=== PATIENT | male | born 1955 | race Asian ===

== ENCOUNTER 2024-12-16 08:19 | Outpatient (REF) | payer MEDICARE, SELFPAY ==
[2024-12-16 10:23] LABS: Alanine Aminotransferase 29 U/L (0-40); Albumin Level 4.6 g/dL (3.5-5.0); Alkaline Phosphatase 51 U/L (39-117); Aspartate Amino Transferase 25 U/L (5-37); Total Protein 7.2 g/dL (6.5-8.0)
== END 2024-12-16 08:20 | disposition home or self-care (01) ==
LOC: HO.LAB 08:19
PROVIDERS: PCP Internal Medicine; Visit Provider Psychiatry & Neurology Neurology
DX: G40.909 Epilepsy, unspecified, not intractable, without status epilepticus (principal); R42 Dizziness and giddiness; R11.10 Vomiting, unspecified; Z79.899 Other long term (current) drug therapy; Z79.52 Long term (current) use of systemic steroids; Z79.84 Long term (current) use of oral hypoglycemic drugs
CPT/HCPCS: 36415; 80076; 80164

== ENCOUNTER 2024-12-16 08:19 | Outpatient (AMB) | payer OTHER, MEDICAID, SELFPAY ==
--- OUTSIDE RECORDS SUMMARY | 2024-12-16 08:28 | XMS_ITS | Clinical Summary ---
Author Organization [facility] [address] [place] [address] [place] [phone] Phone Care Team Providers Care Business Director Name Role Phone Scott Mcleod MD Primary Care Provider [phone] Allergies No known active allergies Medications ipratropium-albu teroL (DUONEB) 0.5-2.5 mg/3 mL nebulizer solution INHALE THE CONTENT OF 1 VIAL (3mls) VIA NEBULIZER EVERY 6 HOURS NEEDED FOR SHORTNESS OF BREATH OR FOR WHEEZING 023 Active albuterol 2.5 mg /3 mL (0.083 %) nebulizer solution Take 1 Vial by nebulization every 4 hours as needed for Wheezing for up to 30 days. 022 Active divalproex (DEPAKOTE ER) 500 mg 24 hr tablet Take 1 tablet (500 mg total) by mouth 2 (two) times a day. 024 Active metFORMIN (GLUCOPHAGE) 1,000 mg tablet Take 1 tablet (1,000 mg total) by mouth 2 (two) times a day with meals. 180 tablet 1 024 Active Anoro Ellipta 62.5-25 mcg/actuation inhaler INHALE 1 PUFF BY MOUTH ONCE DAILY 60 each 024 Active azithromycin (ZITHROMAX) 250 mg tabletIndication s:Chronic obstructive pulmonary disease, unspecified (CMS/HCC V24, CMS/HCC V28) TAKE 1 TABLET THREE TIMES WEEKLY 14 tablet 11 024 Active Ventolin HFA 90 mcg/actuation inhalerIndicatio ns:Chronic obstructive pulmonary disease, unspecified ([facility] V24, [facility] V28) INHALE TWO PUFFS BY MOUTH INTO lungs EVERY 4 HOURS NEEDED FOR COUGH OR FOR WHEEZING 18 g 11 024 Active Januvia 100 mg tabletIndication s:Type 2 diabetes mellitus without complications ([facility] V24, [facility] V28) TAKE 1 TABLET ONCE DAILY 90 tablet 3 Active blood sugar diagnostic (FreeStyle Lite Strips) test strip Use to check BS daily 100 each 11 Active atorvastatin (LIPITOR) 40 mg tablet Take 1 tablet (40 mg total) by mouth 1 (one) time each day. 30 each 025 2025 Active blood-glucose meter (Death by PartyTouch Ultra2 Meter) misc Use daily to check BS 1 Active lancets 30 gauge misc Check blood sugar 1 times a day or as directed. Dispense onetouch delica lancets 100 each Active OneTouch Ultra Test test strip Use daily to check BS 100 each 025 2025 Active losartan (COZAAR) 50 mg tablet TAKE 1 TABLET ONCE DAILY 30 tablet 5 Active fluticasone-umec lidinium-vilante rol (Trelegy Ellipta) 200-62.5-25 mcg inhaler Inhale 1 puff (200 mcg total) by mouth 1 (one) time each day. Rinse mouth with water after use to reduce aftertaste and incidence of candidiasis. Do not swallow. 1 each 025 2025 Active predniSONE (DELTASONE) 5 mg tablet TAKE 1 TABLET ONCE DAILY 30 tablet 2 Active predniSONE (DELTASONE) 5 mg tablet Take 1 tablet (5 mg total) by mouth 1 (one) time each day. 30 each 2024 Discontinued Active Problems Problem Noted Date Diagnosed Date Type 2 diabetes mellitus wit hout complication, without long-term current use of insulin ([facility] V24, [facility] V28) 06/19/2023 Centrilobular emphysema ([facility] V24, [facility] V2 8) 08/01/2017 Epilepsy ([facility] V24, [facility] V28) 08/01/2017 Erectile dysfunction 08/01/2017 Gastric reflux 08/01/2017 Hyperlipidemia 08/01/2017 Encounters Date Type Department Care Team Description 12/08/2024 8:15 AM EDT Office Visit Pulmonolgy - [place] [address] [facility] [address] [place] [phone] Nancie Preciado MD Chronic obstructive pulmonary disease, unspecified COPD type ([facility] V24, [facility] V28) (Primary Dx); Tobacco abuse 10/22/2024 [id number] [place] [phone] Ivone Antonio PA Medication Problem from Last 3 Months Immunizations Name Administration Dates Next Due Influenza trivalent, 0.5mL ( Fluzone High-dose) 65yo and older 03/11/2023 Pneumococcal polysaccharide 23 valent (Pneumovax 23) 2yo and older 12/15/2018 Medical History Medical History Date Comments Centrilobular emphysema ([facility] V24, [facility] V28) 08/01/2017 DX:Centrilobular emphysema ( HCC) Epilepsy ([facility] V24, [facility] V28) 08/01/2017 DX:Epilepsy (HCC) Erectile dysfunction 08/01/2017 DX:Erectile dysfunction Gastric reflux 08/01/2017 DX:Gastric reflu x Hyperlipidemia 08/01/2017 DX:Hyperlipidemi a Personal history of tuberculosis 08/01/2017 DX:Personal history of tuberculosis Tobacco use 08/01/2017 DX:Tobacco use Social History Tobacco Use Types Packs/Day Years Used Date Smoking Tobacco: Some Days Cigarettes Last attempted to quit: 08/11/2021 Smokeless Tobacco: Never Tobacco Cessation:Ready to Q uit: Not Asked; Counseling Given: Not Answered Comments:Smoking 2 cigs some days. Alcohol Use Standard Drinks/Week Comments No 0 (1 standard drink = 0.6 oz pur e alcohol) Sex and Gender Information Value Date Recorded Sex Assigned at Not on file Legal Sex Male 1:43 AM EST Gender Identity Not on file Sexual Orientation Not on file Obstetrics History Last Filed Vital Signs Vital Sign Reading Time Taken Comments Blood Pressure 131/81 12/08/2024 8:14 AM EDT Pulse 86 12/08/2024 8:14 AM EDT Temperature 36.3 C (97.4 F) 12/08/2024 8:14 AM EDT Respiratory Rate 20 09/07/2024 8:24 AM EDT Oxygen Saturation 96% 12/08/2024 8:14 AM EDT Inhaled Oxygen Concentration - - Weight 69.3 kg (152 lb 12.8 oz) 12/08/2024 8:14 AM EDT Height 180.3 cm (5' 11 ) 09/07/2024 8:24 AM EDT Body Mass Index 21.31 09/07/2024 8:24 AM EDT Plan of Treatment Upcoming Encounters Date Type Department Care Team (Late st Contact Info) Description 01/14/2025 9:30 AM EDT Office Visit [place]ocr[place] [facility] [address] [place] [phone] Ivone Antonio PA [address] [place] [address] 04/30/2025 8:15 AM EST Office Visit Pulmonolgy - [place] [address] [facility] [address] [place] [phone] Nancie Preciado MD [address] [facility] [address] [place] [address] Health Maintenance Due Date Last Done Comments Diabetes: Annual Retina Eye Exam 10/02/1967 DTaP,Tdap,and Td Vaccines (1 - Tdap) 1976 Zoster Vaccines (1 of 2) 10/02/2007 RSV Immunization Adult Patients (1 - Risk 60-74 years 1-dose series) 2017 Pneumococcal Vaccine: 50+ Years (2 of 2 - PCV) 12/16/2019 12/15/2018 Abdominal Aortic Aneurysm (AAA) Screen 05/13/2022 Colorectal Cancer Screening: Colonoscopy 05/13/2022 Hepatitis C Screening 05/13/2022 Medicare Annual Wellness Visit 05/13/2022 Social Influencers of Health Screening 05/13/2022 COVID-19 Vaccine ( season) 2024 05/03/2021, 10/02/2020, 09/10/2020 Depression Screening 11/26/2024 11/27/2023 Falls Risk Assessment 11/26/2024 11/27/2023 Diabetes: Blood Sugar Control Test (HGBA1C) 01/13/2025 07/16/2024, 04/15/2024, 08/14/2023 Influenza Vaccine (#1) 2025 , 05/26/2021, 05/08/2020, Additional history exists Diabetes: Annual Urine Albumin-Creatinine Ratio (uACR) 04/15/2025 04/15/2024, 06/19/2023 Diabetes: Annual Foot Exam 04/15/2025 04/15/2024 Diabetes: Annual GFR (Glomerular Filtration Rate) 04/15/2025 04/15/2024 Hypertension/CHF/CAD Annual BMP Blood Test 04/15/2025 04/15/2024 Cholesterol Screening (Lipid Panel) 07/16/2029 07/16/2024, 04/15/2024, 08/14/2023 HIB Vaccines Aged Out No longer eligi ble based on patient's age to complete this topic HPV Vaccines Aged Out No longer eligi ble based on patient's age to complete this topic Hepatitis A Vaccines Aged Out No long er eligible based on patient's age to complete this topic Hepatitis B Vaccines Aged Out No long er eligible based on patient's age to complete this topic IPV Vaccines Aged Out No longer eligi ble based on patient's age to complete this topic MMR Vaccines Aged Out No longer eligi ble based on patient's age to complete this topic Meningococcal ACWY Vaccine Aged Out N o longer eligible based on patient's age to complete this topic Meningococcal B Vaccine Aged Out No l onger eligible based on patient's age to complete this topic RSV Immunization Patients Under 20 months Aged Out No longer eligible based on patient's age to complete this topic Varicella Vaccines Aged Out No longer eligible based on patient's age to complete this topic Procedures Procedure Name Priority Date/Time Associated Diagnosis Comments HEMOGLOBIN A1C Routine 07/16/2024 10:15 AM EST Type 2 diabetes mellitus without complication, without long-term current use of insulin ([facility] V24, [facility] V28) LIPID PANEL WITH REFLEX TO DIRECT LDL Routine 07/16/2024 10:15 AM EST Type 2 diabetes mellitus without complication, without long-term current use of insulin ([facility] V24, [facility] V28) MICROALBUMIN CREATININE URINE RATIO Routine 04/15/2024 10:03 AM EST Type 2 diabetes mellitus without complication, without long-term current use of insulin ([facility] V24, [facility] V28) BASIC METABOLIC PANEL Routine 04/15/2024 10:03 AM EST Type 2 diabetes mellitus without complication, without long-term current use of insulin ([facility] V24, [facility] V28) DEPRESSION SCREENING Routine 11/27/2023 FALLS RISK ASSESSMENT Routine 11/27/2023 from Last 3 Months or Most Recently Relevant to Health Maintenance Results * (ABNORMAL) Lipid panel with reflex to direct LDL (07/16/2024 10:15 AM EST) Cholesterol 205(H) 0 - 200 mg/dL LAB CHEMISTRY METHOD 07/16/2024 12:43 PM [facility] Triglycerides 92 0 - 150 mg/dL LAB CHEMISTRY METHOD 07/16/2024 12:43 PM [facility] HDL 63 >=40 mg/dL LAB CHEMISTRY METHOD 07/16/2024 12:43 PM [facility] LDL Calculated 124(H) 0 - 100 mg/dL LAB CHEMISTRY METHOD 07/16/2024 12:43 PM [facility] VLDL Cholesterol Luis Daniel 18.4 mg/dL LAB CHEMISTRY METHOD 07/16/2024 12:43 PM [facility] Non HDL Chol. (LDL+VLDL) 142 <145 mg/dL LAB CHEMISTRY METHOD 07/16/2024 12:43 PM [facility] Chol/HDL Ratio 3.3 0.0 - 4.4 LAB CHEMISTRY METHOD 07/16/2024 12:43 PM EST [facility] Blood Venous blood specimen / Unknown Venipuncture / Unknown 07/16/2024 10:15 AM EST 07/16/2024 10:15 AM EST Ivone CASTANEDA LAB BLOOD ORDERABLES Final Result [facility] [address] [place] [address], [place] [phone] * (ABNORMAL) Hemoglobin A1c (07/16/2024 10:15 AM EST) Hemoglobin A1C 6.9(H) <6.5 % LAB CHEMISTRY METHOD 07/16/2024 2:11 PM EST [facility] Mean Bld Glu Estim. 151 mg/dL LAB CHEMISTRY METHOD 07/16/2024 2:11 PM EST [facility] Blood Venous blood specimen / Unknown Venipuncture / Unknown 07/16/2024 10:15 AM EST 07/16/2024 10:15 AM EST Ivone CASTANEDA LAB BLOOD ORDERABLES Final Result [facility] [address] [place] [address], [place] [phone] * Microalbumin creatinine urine ratio (04/15/2024 10:03 AM EST) Creatinine, Urine 108.0 mg/dL LAB CHEMISTRY METHOD 04/15/2024 2:29 PM EST [facility] Microalb, Ur 5.5 0.0 - 29.0 mg/L LAB CHEMISTRY METHOD 04/15/2024 2:29 PM [facility] Microalb/Creat Ratio 5 <30 mg/g creat LAB CHEMISTRY METHOD 04/15/2024 2:29 PM EST [facility] Urine Urine specimen from urethra / Unknown Non-blood Collection / Unknown 04/15/2024 10:03 AM EST 04/15/2024 10:03 AM EST us Ivone CASTANEDA LAB URINE ORDERABLES Final Result [facility] [address] [place] [address], [place] [phone] * (ABNORMAL) Basic metabolic panel (04/15/2024 10:03 AM EST) Pathologist [facility] Sodium 140 133 - 145 mmol/L LAB CHEMISTRY METHOD 04/15/2024 2:06 PM [facility] Potassium 4.7 3.5 - 5.5 mmol/L LAB CHEMISTRY METHOD 04/15/2024 2:06 PM [facility] Chloride 106 96 - 110 mmol/L LAB CHEMISTRY METHOD 04/15/2024 2:06 PM [facility] CO2 31 21 - 32 mmol/L LAB CHEMISTRY METHOD 04/15/2024 2:06 PM [facility] Anion Gap 3 3 - 11 LAB CHEMISTRY METHOD 04/15/2024 2:06 PM [facility] Glucose 112(H) 70 - 100 mg/dL LAB CHEMISTRY METHOD 04/15/2024 2:06 PM [facility] BUN 18 5 - 25 mg/dL LAB CHEMISTRY METHOD 04/15/2024 2:06 PM [facility] Creatinine 0.89 0.70 - 1.30 mg/dL LAB CHEMISTRY METHOD 04/15/2024 2:06 PM [facility] eGFR 95 >=60 mL/min/1. 73m2 LAB CHEMISTRY METHOD 04/15/2024 2:06 PM [facility] Comment:Calculation based on the Chronic Kidney Disease Epidemiology Collaboration (CKD-EPI) equation refit without adjustment for race. BUN/Creatinine Ratio 20.2 LAB CHEMISTRY METHOD 04/15/2024 2:06 PM [facility] Calcium 9.2 8.5 - 10.5 mg/dL LAB CHEMISTRY METHOD 04/15/2024 2:06 PM EST [facility] Blood Venous blood specimen / Unknown Venipuncture / Unknown 04/15/2024 10:03 AM EST 04/15/2024 10:03 AM EST Ivone CASTANEDA LAB BLOOD ORDERABLES Final Result [facility] [address] [place] [address], * Falls Risk Assessment (11/27/2023) Falls Risk Assessment abstracted Historical Provider MD HEALTH MAINTENANCE Final Result * Depression Screening (11/27/2023) Depression Screening abstracted Historical Provider MD HEALTH MAINTENANCE Final Result from Last 3 Months or Most Recently Relevant to Health Maintenance Insurance MEDICAID - [place] [employer] MEDICARE Care Teams Business Director Relationship Specialty Start Date End Date Scott Mcleod MD [address] [address] PCP - General Internal Medicine 07/03/18
--- NOTE | 2024-12-16 08:36 | MHC.OFFVIS ---
Intake Visit Reasons: 6 month f/u Allergies No Known Allergies Allergy (Verified 12/15/24 10:59) Medication List - Last Reconciled 12/16/24 by Chata Padilla MD albuterol sulfate 90 mcg/actuation (Ventolin HFA) 2 puffs inhalation Q4H PRN atorvastatin 40 mg PO DAILY blood sugar diagnostic (OneTouch Ultra Test strips) As directed divalproex ER 500 mg PO BID ipratropium-albuterol 0.5 mg-3 mg(2.5 mg base)/3 mL mL inhalation Q6H PRN lancets (True Comfort Lancet) As directed losartan 50 mg PO DAILY metformin 1,000 mg PO BID prednisone 5 mg PO DAILY sitagliptin phosphate (Januvia) 100 mg PO DAILY umeclidinium-vilanterol 62.5-25 mcg/actuation (Anoro Ellipta) 1 ea inhalation DAILY HPI Comments Details: 68 yo man originally from [facility] probably with seizure disorder resulting in episodes of passing out. Episodes started with a feeling of dizziness leading to vomiting, and then he passed out not knowing what had happened. He has been taking Depakote for years for its control. 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 EEG in office in 2023 did not reveal any significant abnormality. He said that he was taking his medicines regularly and did not have anymore episodes. [facility] Medical History (Updated 12/16/24 @ 08:46 by Chata Padilla MD) Seizure disorder Review of Systems Const Details: Constitutional:?No fever, chills, fatigue, weight loss, or night sweats. HEENT:?No headache, vision changes, hearing loss, nasal congestion, sore throat. Neurological:?No dizziness, syncope, seizures, numbness, tingling, weakness, tremors, memory loss. Psychiatric:?No anxiety, depression, mood swings, sleep disturbance, or hallucinations. Endocrine:?No heat/cold intolerance, polydipsia, polyuria, or hair/skin changes. Hematologic/Lymphatic:?No easy bruising, bleeding, or lymphadenopathy. Integumentary (Skin):?No rash, lesions, itching, or color changes. ? Physical Exam Neuro Other: Mental Status: Alert and oriented to person, place, and time. Cranial Nerves: CN II: Visual bhakta full to confrontation, visual acuity intact. CN III, IV, : Pupils equal, round, reactive to light and accommodation. Extraocular movements are normal. CN V: Facial sensation is normal. CN VII: Facial movements symmetrical. CN VIII: Hearing intact to bedside conversation is normal. CN IX, X: Palate elevates symmetrically. CN XI: Shoulder shrug and head turn symmetrical. CN XII: Tongue midline without atrophy or fasciculations. Gait and Station: No obvious gait abnormality. No ataxia or instability. Sensory: Intact to light touch, pinprick, and vibration. Romberg is negative. Extrapyramidal: Full facial expressions and blinking. No rigidity. Movements are appropriate with no tremor or abnormality. Speech: Normal; no dysarthria or tremor. 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 Code(s): G40.909 - Epilepsy, unspecified, not intractable, without status epilepticus Category: Medical Plan Impression: Probable seizure disorder resulting in passing out for which he has been taking medicines 4 years. At this time, with medicine, his symptoms were controlled while a routine EEG did not reveal any significant abnormality. Recommendation: For now continue Depakote 500 mg twice a day. Orders: Orders Liver Panel Today G40.909 - Epilepsy, unspecified, not intractable, without status epilepticus Valproate Today G40.909 - Epilepsy, unspecified, not intractable, without status epilepticus Medications: New divalproex 500 mg PO BID 180 tabs 1RF Coding Level of Care Code Est Pt Level 4 (03383) Diagnoses Seizure disorder G40.909
== END 2024-12-16 08:51 | disposition home or self-care (01) ==
LOC: HO.HSM 08:19
PROVIDERS: PCP Internal Medicine; Visit Provider Psychiatry & Neurology Neurology
DX: G40.909 Epilepsy, unspecified, not intractable, without status epilepticus (principal)
CPT/HCPCS: 99214